=== PATIENT | female | born 1975 | race Caucasian/White ===

== ENCOUNTER 2017-01-13 22:14 | Emergency (ER) | payer OTHER ==
[2017-01-13] MEDS ORDERED: ALBUTEROL 90 MCG/ACT 8GM HFA INHALER As Ordered ONE (23:13)
[2017-01-13] MEDS ORDERED: AUGMENTIN 875 MG TAB As Ordered ONE (23:13)
--- NOTE | 2017-01-13 23:18 | EDDOCDS ---
Physician Documentation [facility] Name: Africa Roberts Age: 41 yrs Sex: Female : 1975 Arrival Date: 01/13/2017 Time: 22:14 Bed Triage 3 Private MD: ERNIE Batista Disposition: 01/13/17 23:13 Discharged to Home/Self Care. Impression: Acute frontal sinusitis, Cough. - Condition is Stable. - Discharge Instructions: Sinus Headache, Sinusitis, Adult. - Prescriptions for Augmentin 875- 125 mg Oral Tablet - take 1 tablet by ORAL route every 12 hours for 10 days; 20 tablet. - Medication Reconciliation, Local Pharmacy Hours form. - Follow up: ERNIE Batista; When: Call to arrange an appointment; Reason: Recheck today's complaints, Continuance of care. - Problem is new. - Symptoms are unchanged. Historical: - Allergies: no known allergies; - Home Meds: 1. pseudoephedrine HCl 240 mg Oral Tb24 daily 2. Nasacort 55 mcg/actuation Nasal aero as needed 3. lisinopril 5 mg Oral tab 1 tab once daily 4. cetirizine 10 mg oral chew 1 tab once daily 5. multivitamin Oral cap 1 tablet daily 6. sumatriptan succinate 3 mg/0.5 mL Sub-Q pnij as needed 7. BCP once daily - PMHx: Hypertension; - PSHx: nerve block; - Social history: Smoking status: Patient states was never smoker of tobacco. No barriers to communication noted, The patient speaks fluent Eritrean. - Family history: Not pertinent. - : The pt / caregiver states he / she is not on anticoagulants. Home medication list is obtained from the patient. - Exposure Risk Screening:: None identified. 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 9 in. (175.26 cm) (R); Pain 8/10; 22:16 Body Mass Index 20.97 (64.41 kg, 175.26 cm) ct3 MDM: 23:11 Ventolin Inhaler 2 puffs Inhalation once; 1-2 puffs every 4-6hrs ordered. mo1 23:11 Amoxicillin-Clavulanate 875 mg 1 tabs PO once ordered. mo1 Administered Medications: 23:16 Drug: Ventolin 2 puffs [Ventolin HFA 90 mcg/actuation aerosol inhaler (2 puffs)] Route: jmb Inhalation; 23:16 Drug: Amoxicillin-Clavulanate 1 tabs [amoxicillin 875 mg-potassium clavulanate 125 mg jmb tablet (1 tabs)] Route: PO; Signatures: Madeline AldanaRN RN rs3 Andi Cardona PA PA mo1 Berhane Parkinson RN RN vivianab The chart was reviewed and I authenticate all verbal orders and agree with the evaluation and treatment provided.Corrections: (The following items were deleted from the chart) 22:27 22:25 PSHx: none; rs3 rs3 MTDD
--- NOTE | 2017-01-13 23:18 | EDDOCDS ---
Nurse's Notes [facility] Name: Africa Roberts Age: 41 yrs Sex: Female : 1975 Arrival Date: 01/13/2017 Time: 22:14 Bed Triage 3 Private MD: Lynne [facility] Diagnosis: Acute frontal sinusitis;Cough Presentation: 01/13 22:23 Presenting complaint: Patient states: fever, chest congestion, cough on and off for 4 rs3 days. Adult Sepsis Screening: The patient does not have new or worsening altered mentation. Patient's respiratory rate is less than 22. Systolic blood pressure is greater than 100. Patient has a qSOFA score of 0- Negative Sepsis Screen. Suicide/Homicide risk assessment- the patient denies having any suicidal and/or homicidal ideations and does not present with any other emotional, behavioral or mental health complaints. Status: Patient is not a director volunteer services or dependent. Transition of care: patient was not received from another setting of care. 22:23 Acuity: MATT Level 4 rs3 22:23 Method Of Arrival: Walkin/Carried/Asstd rs3 Triage Assessment: 22:26 General: Appears in no apparent distress. Pain: Location: sore throat. HIV screening NA rs3 for this visit Offered previously. Respiratory: Onset: The symptoms/episode began/occurred gradually. 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 pseudoephedrine HCl 240 mg Oral Tb24 daily 2. Nasacort 55 mcg/actuation Nasal aero as needed 3. lisinopril 5 mg Oral tab 1 tab once daily 4. cetirizine 10 mg oral chew 1 tab once daily 5. multivitamin Oral cap 1 tablet daily 6. sumatriptan succinate 3 mg/0.5 mL Sub-Q pnij as needed 7. BCP once daily - PMHx: Hypertension; - PSHx: nerve block; - Social history: Smoking status: Patient states was never smoker of tobacco. No barriers to communication noted, The patient speaks fluent Ukrainian. - Family history: Not pertinent. - : The pt / caregiver states he / she is not on anticoagulants. Home medication list is obtained from the patient. - Exposure Risk Screening:: None identified. Screenin:16 Screening information is obtained from the patient. Fall risk: No risks identified. jmb Assistance ADL's: requires no assistance with activities of daily living. Abuse/DV Screen: The patient / caregiver reports he/she is: not in a situation that causes fear, pain or injury. Nutritional screening: No deficits noted. Advance Directives: Currently, there is no health care proxy. There is no active DNR order. There is no living will. There is no Power of Associate Professor Of Geology. home support is adequate. Assessment: 23:16 General: Patient instructed on discharge instructions. Patient asked if there were any jmb questions regarding discharge, patient stated no. Patient signed discharge instructions. Patient discharged in stable condition. . Cardiovascular: Capillary refill < 3 seconds Heart tones S1 S2 present. Respiratory: Airway is patent Respiratory effort is even, unlabored, Respiratory pattern is regular, symmetrical, Breath sounds are diminished bilaterally. Vital Signs: 22:16 BP 131 / 71; Pulse 90; Resp 18; Temp 97.3(O); Pulse Ox 99% on R/A; Weight 64.41 kg (R); ct3 Height 5 ft. 9 in. (175.26 cm) (R); Pain 8/10; 22:16 Body Mass Index 20.97 (64.41 kg, 175.26 cm) ct3 Vitals: 22:16 Log In Time: January 13, 2017 at 22:13. ct3 ED Course: 22:15 Patient visited by Faviola Crook PCA. ct3 22:15 Patient moved to Waiting ct3 22:16 Lynne [facility] is Private Physician. ct3 22:17 Patient moved to Pre RCE ct3 22:24 Triage Initiated rs3 22:40 Patient moved to Triage 3 kc3 22:54 Andi Cardona PA is PHCP. mo1 22:54 Osiel Talamantes DO is Attending Physician. mo1 23:11 Patient visited by Andi Cardona PA. mo1 23:12 ERNIE Batista is Referral Physician. mo1 23:16 The patient / caregiver is instructed regarding the plan of care and ED course. jmb 23:16 No IV's were initiated during this patient's visit. No procedures done that require jmb assistance. Administered Medications: 23:16 Drug: Ventolin 2 puffs [Ventolin HFA 90 mcg/actuation aerosol inhaler (2 puffs)] Route: jmb Inhalation; 23:16 Drug: Amoxicillin-Clavulanate 1 tabs [amoxicillin 875 mg-potassium clavulanate 125 mg jmb tablet (1 tabs)] Route: PO; Order Results: There are currently no results for this order. Outcome: 23:13 Discharge ordered by Provider. mo1 23:16 Discharge Assessment: Patient awake, alert and oriented x 3. No cognitive and/or jmb functional deficits noted. Patient verbalized understanding of disposition instructions. Patient awake and alert. obeys commands, Oriented to person, place and time. Patient verbalized understanding of disposition instructions. Patient has no functional deficits. patient administered narcotics - no. The following High Risk Discharge criteria are identified: None. Discharged to home ambulatory, with significant other. Condition: stable Condition: improved. Discharge instructions given to patient, Instructed on discharge instructions, follow up and referral plans. medication usage, Demonstrated understanding of instructions, medications, Pt was receptive of discharge instructions/ teaching. Prescriptions given X 1. No special radiology studies were completed. Property sent home with patient. 23:18 Patient left the ED. b Signatures: Madeline AldanaRN RN rs3 Faviola Crook, CLEANER TOUCH UP WORKER CLEANER TOUCH UP WORKER ct3 Andi Cardona PA PA mo1 Berhane Parkinson RN RN jmb Crane, Kelsi, RN RN kc3 Corrections: (The following items were deleted from the chart) 22:27 22:25 PSHx: none; rs3 rs3 MTDD
--- NOTE | 2017-01-16 00:18 | EDDOCDS ---
Physician Documentation [facility] Name: Africa Roberts Age: 41 yrs Sex: Female : 1975 Arrival Date: 01/13/2017 Time: 22:14 Bed Triage 3 Private MD: ERNIE Batista Disposition: 01/13/17 23:13 Discharged to Home/Self Care. Impression: Acute frontal sinusitis, Cough. - Condition is Stable. - Discharge Instructions: Sinus Headache, Sinusitis, Adult. - Prescriptions for Augmentin 875- 125 mg Oral Tablet - take 1 tablet by ORAL route every 12 hours for 10 days; 20 tablet. - Medication Reconciliation, Local Pharmacy Hours form. - Follow up: ERNIE Batista; When: Call to arrange an appointment; Reason: Recheck today's complaints, Continuance of care. - Problem is new. - Symptoms are unchanged. Historical: - Allergies: no known allergies; - Home Meds: 1. pseudoephedrine HCl 240 mg Oral Tb24 daily 2. Nasacort 55 mcg/actuation Nasal aero as needed 3. lisinopril 5 mg Oral tab 1 tab once daily 4. cetirizine 10 mg oral chew 1 tab once daily 5. multivitamin Oral cap 1 tablet daily 6. sumatriptan succinate 3 mg/0.5 mL Sub-Q pnij as needed 7. BCP once daily - PMHx: Hypertension; - PSHx: nerve block; - Social history: Smoking status: Patient states was never smoker of tobacco. No barriers to communication noted, The patient speaks fluent Hungarian. - Family history: Not pertinent. - : The pt / caregiver states he / she is not on anticoagulants. Home medication list is obtained from the patient. - Exposure Risk Screening:: None identified. 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 9 in. (175.26 cm) (R); Pain 8/10; 22:16 Body Mass Index 20.97 (64.41 kg, 175.26 cm) ct3 MDM: 23:11 Ventolin Inhaler 2 puffs Inhalation once; 1-2 puffs every 4-6hrs ordered. mo1 23:11 Amoxicillin-Clavulanate 875 mg 1 tabs PO once ordered. mo1 23:42 [facility] Payment Agreement was scanned into [employer] and attached to record. jp5 23:42 Financial registration complete. jp5 01/14 13:30 T-Sheet-- Draft Copy was scanned into [employer] and attached to record. gb Administered Medications: 01/13 23:16 Drug: Ventolin 2 puffs [Ventolin HFA 90 mcg/actuation aerosol inhaler (2 puffs)] Route: jmb Inhalation; 23:16 Drug: Amoxicillin-Clavulanate 1 tabs [amoxicillin 875 mg-potassium clavulanate 125 mg jmb tablet (1 tabs)] Route: PO; Signatures: Annette Blanc, Reg Reg gb Madeline Aldana RN RN rs3 Andi Cardona PA PA mo1 Berhane Parkinson RN RN jmb Price, Jennalee 5 The chart was reviewed and I authenticate all verbal orders and agree with the evaluation and treatment provided.Corrections: (The following items were deleted from the chart) 22:27 22:25 PSHx: none; rs3 rs3 Attachments: 23:42 [facility] Payment Agreement jp5 01/14 13:30 T-Sheet-- Draft Copy gb Chart Complete MTDD
--- NOTE | 2017-01-16 00:18 | EDDOCDS ---
Nurse's Notes [facility] Name: Africa Roberts Age: 41 yrs Sex: Female : 1975 Arrival Date: 01/13/2017 Time: 22:14 Bed Triage 3 Private MD: Lynne [facility] Diagnosis: Acute frontal sinusitis;Cough Presentation: 01/13 22:23 Presenting complaint: Patient states: fever, chest congestion, cough on and off for 4 rs3 days. Adult Sepsis Screening: The patient does not have new or worsening altered mentation. Patient's respiratory rate is less than 22. Systolic blood pressure is greater than 100. Patient has a qSOFA score of 0- Negative Sepsis Screen. Suicide/Homicide risk assessment- the patient denies having any suicidal and/or homicidal ideations and does not present with any other emotional, behavioral or mental health complaints. Status: Patient is not a vehicle service attendant or dependent. Transition of care: patient was not received from another setting of care. 22:23 Acuity: MATT Level 4 rs3 22:23 Method Of Arrival: Walkin/Carried/Asstd rs3 Triage Assessment: 22:26 General: Appears in no apparent distress. Pain: Location: sore throat. HIV screening NA rs3 for this visit Offered previously. Respiratory: Onset: The symptoms/episode began/occurred gradually. 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 pseudoephedrine HCl 240 mg Oral Tb24 daily 2. Nasacort 55 mcg/actuation Nasal aero as needed 3. lisinopril 5 mg Oral tab 1 tab once daily 4. cetirizine 10 mg oral chew 1 tab once daily 5. multivitamin Oral cap 1 tablet daily 6. sumatriptan succinate 3 mg/0.5 mL Sub-Q pnij as needed 7. BCP once daily - PMHx: Hypertension; - PSHx: nerve block; - Social history: Smoking status: Patient states was never smoker of tobacco. No barriers to communication noted, The patient speaks fluent Vietnamese. - Family history: Not pertinent. - : The pt / caregiver states he / she is not on anticoagulants. Home medication list is obtained from the patient. - Exposure Risk Screening:: None identified. Screenin:16 Screening information is obtained from the patient. Fall risk: No risks identified. jmb Assistance ADL's: requires no assistance with activities of daily living. Abuse/DV Screen: The patient / caregiver reports he/she is: not in a situation that causes fear, pain or injury. Nutritional screening: No deficits noted. Advance Directives: Currently, there is no health care proxy. There is no active DNR order. There is no living will. There is no Power of Lead Welder. home support is adequate. Assessment: 23:16 General: Patient instructed on discharge instructions. Patient asked if there were any jmb questions regarding discharge, patient stated no. Patient signed discharge instructions. Patient discharged in stable condition. . Cardiovascular: Capillary refill < 3 seconds Heart tones S1 S2 present. Respiratory: Airway is patent Respiratory effort is even, unlabored, Respiratory pattern is regular, symmetrical, Breath sounds are diminished bilaterally. Vital Signs: 22:16 BP 131 / 71; Pulse 90; Resp 18; Temp 97.3(O); Pulse Ox 99% on R/A; Weight 64.41 kg (R); ct3 Height 5 ft. 9 in. (175.26 cm) (R); Pain 8/10; 22:16 Body Mass Index 20.97 (64.41 kg, 175.26 cm) ct3 Vitals: 22:16 Log In Time: January 13, 2017 at 22:13. ct3 ED Course: 22:15 Patient visited by Faviola Crook PCA. ct3 22:15 Patient moved to Waiting ct3 22:16 Lynne [facility] is Private Physician. ct3 22:17 Patient moved to Pre RCE ct3 22:24 Triage Initiated rs3 22:40 Patient moved to Triage 3 kc3 22:54 Andi Cardona PA is PHCP. mo1 22:54 Osiel Talamantes DO is Attending Physician. mo1 23:11 Patient visited by Andi Cardona PA. mo1 23:12 ERNIE Batista is Referral Physician. mo1 23:16 The patient / caregiver is instructed regarding the plan of care and ED course. jmb 23:16 No IV's were initiated during this patient's visit. No procedures done that require jmb assistance. 23:42 [facility] Payment Agreement was scanned into [employer] and attached to record. jp5 01/14 13:30 T-Sheet-- Draft Copy was scanned into [employer] and attached to record. gb Administered Medications: 01/13 23:16 Drug: Ventolin 2 puffs [Ventolin HFA 90 mcg/actuation aerosol inhaler (2 puffs)] Route: jmb Inhalation; 23:16 Drug: Amoxicillin-Clavulanate 1 tabs [amoxicillin 875 mg-potassium clavulanate 125 mg jmb tablet (1 tabs)] Route: PO; Order Results: There are currently no results for this order. Outcome: 23:13 Discharge ordered by Provider. mo1 23:16 Discharge Assessment: Patient awake, alert and oriented x 3. No cognitive and/or jmb functional deficits noted. Patient verbalized understanding of disposition instructions. Patient awake and alert. obeys commands, Oriented to person, place and time. Patient verbalized understanding of disposition instructions. Patient has no functional deficits. patient administered narcotics - no. The following High Risk Discharge criteria are identified: None. Discharged to home ambulatory, with significant other. Condition: stable Condition: improved. Discharge instructions given to patient, Instructed on discharge instructions, follow up and referral plans. medication usage, Demonstrated understanding of instructions, medications, Pt was receptive of discharge instructions/ teaching. Prescriptions given X 1. No special radiology studies were completed. Property sent home with patient. 23:18 Patient left the ED. b Signatures: Annette Blanc, Reg Reg gb Madeline Aldana,RN RN rs3 Faviola Crook, PRECISION LENS GRINDER APPRENTICE PRECISION LENS GRINDER APPRENTICE ct3 Andi Cardona PA PA mo1 Berhane Parkinson,RN RN Jazmyn Bahena jp5 Silva Johnson,RN RN kc3 Corrections: (The following items were deleted from the chart) 22:27 22:25 PSHx: none; rs3 rs3 Chart Complete MTDD
--- NOTE | 2017-01-16 00:18 | EDDOCDS ---
Physician Documentation [facility] Name: Africa Roberts Age: 41 yrs Sex: Female : 1975 Arrival Date: 01/13/2017 Time: 22:14 Bed Triage 3 Private MD: ERNIE Batista Disposition: 01/13/17 23:13 Discharged to Home/Self Care. Impression: Acute frontal sinusitis, Cough. - Condition is Stable. - Discharge Instructions: Sinus Headache, Sinusitis, Adult. - Prescriptions for Augmentin 875- 125 mg Oral Tablet - take 1 tablet by ORAL route every 12 hours for 10 days; 20 tablet. - Medication Reconciliation, Local Pharmacy Hours form. - Follow up: ERNIE Batista; When: Call to arrange an appointment; Reason: Recheck today's complaints, Continuance of care. - Problem is new. - Symptoms are unchanged. Historical: - Allergies: no known allergies; - Home Meds: 1. pseudoephedrine HCl 240 mg Oral Tb24 daily 2. Nasacort 55 mcg/actuation Nasal aero as needed 3. lisinopril 5 mg Oral tab 1 tab once daily 4. cetirizine 10 mg oral chew 1 tab once daily 5. multivitamin Oral cap 1 tablet daily 6. sumatriptan succinate 3 mg/0.5 mL Sub-Q pnij as needed 7. BCP once daily - PMHx: Hypertension; - PSHx: nerve block; - Social history: Smoking status: Patient states was never smoker of tobacco. No barriers to communication noted, The patient speaks fluent Gibraltarian. - Family history: Not pertinent. - : The pt / caregiver states he / she is not on anticoagulants. Home medication list is obtained from the patient. - Exposure Risk Screening:: None identified. 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 9 in. (175.26 cm) (R); Pain 8/10; 22:16 Body Mass Index 20.97 (64.41 kg, 175.26 cm) ct3 MDM: 23:11 Ventolin Inhaler 2 puffs Inhalation once; 1-2 puffs every 4-6hrs ordered. mo1 23:11 Amoxicillin-Clavulanate 875 mg 1 tabs PO once ordered. mo1 23:42 [facility] Payment Agreement was scanned into [employer] and attached to record. jp5 23:42 Financial registration complete. jp5 01/14 13:30 T-Sheet-- Draft Copy was scanned into [employer] and attached to record. gb Administered Medications: 01/13 23:16 Drug: Ventolin 2 puffs [Ventolin HFA 90 mcg/actuation aerosol inhaler (2 puffs)] Route: jmb Inhalation; 23:16 Drug: Amoxicillin-Clavulanate 1 tabs [amoxicillin 875 mg-potassium clavulanate 125 mg jmb tablet (1 tabs)] Route: PO; Signatures: Annette Blanc, Reg Reg gb Madeline Aldana RN RN rs3 Andi Cardona PA PA mo1 Berhane Parkinson RN RN jmb Price, Jennalee 5 The chart was reviewed and I authenticate all verbal orders and agree with the evaluation and treatment provided.Corrections: (The following items were deleted from the chart) 22:27 22:25 PSHx: none; rs3 rs3 Attachments: 23:42 [facility] Payment Agreement jp5 01/14 13:30 T-Sheet-- Draft Copy gb Chart Complete MTDD
== END 2017-01-13 23:18 | disposition home or self-care (01) ==
LOC: M ED 22:14
DX: J01.90 Acute sinusitis, unspecified (principal); R05 Cough; H92.02 Otalgia, left ear; J00 Acute nasopharyngitis [common cold]; I10 Essential (primary) hypertension; Z79.3 Long term (current) use of hormonal contraceptives; Z79.899 Other long term (current) drug therapy

== ENCOUNTER → 2018-06-23 | Outpatient (CLI) | payer OTHER | LOC: M LRY 18:26 | DX: S69.92XA Unspecified injury of left wrist, hand and finger(s), initial encounter (principal); X58.XXXA Exposure to other specified factors, initial encounter; Y92.9 Unspecified place or not applicable | CPT/HCPCS: 73130; 90715 ==

== ENCOUNTER → 2019-03-25 | Outpatient (REF) | payer OTHER | LOC: M SFHCLERA 09:36 | PROVIDERS: ATTEND Nurse Practitioner Family | DX: J02.9 Acute pharyngitis, unspecified (principal) ==

== ENCOUNTER → 2020-07-18 | Outpatient (CLI) | payer OTHER ==
[~2020-07-18] MED LIST: PROHANCE 279.3MG/ML 15ML VIAL As Ordered ONE
== END ==
LOC: M RAD 09:00
PROVIDERS: ATTEND Obstetrics & Gynecology
DX: N93.9 Abnormal uterine and vaginal bleeding, unspecified (principal)
CPT/HCPCS: 72197; A9576